=== PATIENT | female | born 1980 | race Caucasian/White ===

== ENCOUNTER 2017-07-27 19:17 | Emergency (ER) | payer SELFPAY ==
[~2017-07-27] VITALS: Ht 157.5 cm; Wt 65.8 kg
[~2017-07-27 19:17] MED LIST: ACETAMINOPHEN-1 EAC1 PO; ASPIRIN PO; BACTRIM DS TAB1 EACH PO; CEPHALEXIN 500500 M3 PO; HYDROCODON-ACE1 EAC7 PO; HYDROCODON-ACE1 EAC8 PO; HYDROXYZINE HCL25 M1 PO; IBUPROFEN 200200 M1 PO; IUD; MEDROLDOSEPACK PO; MELATONIN3 MG PO; NABUMETONE 500500 M1 PO; NAPROSYN500 MG PO; NEURONTIN 300300 M1 PO; NEXIUM40 MG PO; NORCO 5-325 TA1 EAC1 PO; ORPHENADRINE C100 M2 PO; TIZANIDINE HCL4 MG PO; TRAMADOL 50 MG50 MG PO; XANAX 0.5 MG0.5 MG PO; ZANAFLEX6 MG PO
[2017-07-27] MEDS ORDERED: ZANAFLEX4 MG PO (19:44)
[2017-07-27] MEDS ORDERED: NORCO 5-325 TA1 EAC1 PO (19:44)
[2017-07-27 19:50] VITALS: BP 144/91
[2017-07-30] MEDS ORDERED: AMITRIPTYLINE H25 M2 PO (11:40)
[2017-07-30] MEDS ORDERED: MEDROLDOSEPACK PO (11:40)
== END 2017-07-27 19:50 | disposition home or self-care (01) ==
LOC: M.ERS 19:17
DX: S39.012A Strain of muscle, fascia and tendon of lower back, initial encounter (principal); S16.1XXA Strain of muscle, fascia and tendon at neck level, initial encounter; F41.9 Anxiety disorder, unspecified; F17.200 Nicotine dependence, unspecified, uncomplicated; Z88.5 Allergy status to narcotic agent; V49.9XXA Car occupant (driver) (passenger) injured in unspecified traffic accident, initial encounter; Y93.89 Activity, other specified; Y92.89 Other specified places as the place of occurrence of the external cause; Y99.8 Other external cause status

== ENCOUNTER → 2017-07-30 | Outpatient (CLI) | payer OTHER ==
[~2017-07-30] MED LIST changes: +AMITRIPTYLINE H25 M2 PO; +ZANAFLEX4 MG PO
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
== END ==
LOC: M.PC 02:19
DX: M47.812 Spondylosis without myelopathy or radiculopathy, cervical region (principal); M54.12 Radiculopathy, cervical region; K21.9 Gastro-esophageal reflux disease without esophagitis; G89.4 Chronic pain syndrome; M62.838 Other muscle spasm; F31.9 Bipolar disorder, unspecified; K27.9 Peptic ulcer, site unspecified, unspecified as acute or chronic, without hemorrhage or perforation

== ENCOUNTER 2017-08-21 02:42 | Emergency (ER) | payer SELFPAY ==
[~2017-08-21] VITALS: Ht 157.5 cm; Wt 70.3 kg
[2017-08-21 03:30] VITALS: BP 115/67
== END 2017-08-21 03:30 | disposition home or self-care (01) ==
LOC: M.ERS 02:42
DX: S01.21XA Laceration without foreign body of nose, initial encounter (principal); F10.129 Alcohol abuse with intoxication, unspecified; F41.9 Anxiety disorder, unspecified; Z90.49 Acquired absence of other specified parts of digestive tract; Z88.5 Allergy status to narcotic agent; W18.2XXA Fall in (into) shower or empty bathtub, initial encounter; Y93.89 Activity, other specified; Y92.89 Other specified places as the place of occurrence of the external cause; Y99.8 Other external cause status

== ENCOUNTER 2020-01-10 17:38 | Emergency (ER) | payer OTHER ==
[~2020-01-10] VITALS: Ht 157.5 cm; Wt 54.0 kg
[2020-01-10] MEDS ORDERED: BUPROPION HCL100 MG PO (17:49)
[2020-01-10] MEDS ORDERED: TOPAMAX 25 MG T25 MG PO (17:49)
[2020-01-10 18:09] LABS: ABSOLUTE LYMPHOCYTES 1.4 thou/uL (0.8-5.3); ABSOLUTE MONOCYTES 0.4 thou/uL (0.0-1.2); ABSOLUTE NEUTROPHILS 6.5 thou/uL (1.6-8.1); BASOPHILS 0.2 %; EOSINOPHILS 0.2 %; HEMATOCRIT 40.2 % (37.0-47.0); HEMOGLOBIN 13.4 gm/dL (12.0-15.0); MCH 32.2 pg (26.0-34.0); MCHC 33.5 g/dL (28.0-37.0); MCV 96.2 fL (80.0-100.0); MONOCYTES 4.5 %; MPV 6.6 fl. (7.2-11.1); NUCLEATED RBCS 0 /100WBC; PLATELET COUNT* 351 thou/uL (150-400); POLYS 78.1 %; RBC 4.18 mil/uL (4.20-5.00); RDW-CV 14.2 % (10.5-14.5); WBC 8.4 thou/uL (4.0-11.0)
[2020-01-10 18:19] LABS: CALCIUM 9.2 mg/dL (8.5-10.1); CREATININE 0.8 mg/dL (0.6-1.3); POTASSIUM 3.9 mmol/L (3.5-5.1)
[2020-01-10 18:22] LABS: APTT 25.1 Seconds (25.0-31.3); PROTIME 10.5 Seconds (9.20-11.50)
[2020-01-10 18:46] LABS: ALBUMIN 3.9 g/dL (3.4-5.0); CK-MB MASS 1.8 ng/mL (<0.5-3.6); MAGNESIUM 2.2 mg/dL (1.8-2.4); TOTAL BILIRUBIN 0.4 mg/dL (<0.1-1.0); TOTAL PROTEIN 6.9 g/dL (6.4-8.2)
[2020-01-10 18:48] VITALS: BP 106/71
--- NOTE | 2020-01-11 09:40 | EKG ---
[place] [address] ELECTROCARDIOGRAM REPORT Name: GAY STEVEN Room: [facility]#: [id number] Admission: 01/10/20 Attend Phys: Discharge: 01/10/20 Date of : 84 Date of Service: 01/10/20 174 Report #: [id number] THIS REPORT FOR: //name// [facility] ED Test Date: 2020-01-10 Test Time: 17:43:15 Pat Name: GAY STEVEN Department: Room: Gender: Senior Scientist: JV : 1980 Requested By: Mitchell Benavidez Order Number: [id number] MD: Kevin Manjarrez Measurements Intervals Tilly Rate: 98 P: 61 MO: 136 QRS: 44 QRSD: 103 T: -31 QT: 384 QTc: 491 Interpretive Statements Sinus rhythm RSR' in V1 or V2, right VCD or RVH Nonspecific T abnormalities, lateral leads Borderline prolonged QT interval Compared to ECG 06/10/2015 18:07:01 Sinus arrhythmia no longer present Electronically Signed On 01-11-2020 9:40:00 [employer] by Kevin Manjarrez [email or web address] <ELECTRONICALLY SIGNED> By: Kevin Manjarrez MD, FACC 01/11/20 0940 1743 1743 Kevin Manjarrez MD, FAC /EPI
== END 2020-01-10 18:50 | disposition home or self-care (01) ==
LOC: M.ERS 17:38
PROVIDERS: Family Medicine
DX: R07.89 Other chest pain (principal); F41.9 Anxiety disorder, unspecified; F32.9 Major depressive disorder, single episode, unspecified; F90.9 Attention-deficit hyperactivity disorder, unspecified type; Z90.49 Acquired absence of other specified parts of digestive tract; Z79.899 Other long term (current) drug therapy; Z88.5 Allergy status to narcotic agent